=== PATIENT | female | born 1955 | race Caucasian/White ===

== ENCOUNTER → 2016-09-27 | Outpatient (CLI) | payer OTHER ==
[~2016-09-27] MED LIST: GLUCOPHAGE500 MG/TAB PO; LOTENSIN40 MG PO; MAXZIDE-25MG TA1 TAB PO; TIROSINT75 MC1 PO
== END ==
LOC: MC.RAD 06:56
DX: Z12.31 Encounter for screening mammogram for malignant neoplasm of breast (principal)

== ENCOUNTER 2017-04-18 06:24 | Day surgery (SDC) | payer OTHER ==
[~2017-04-18] VITALS: Ht 168.9 cm; Wt 127.1 kg
[2017-04-18 06:53] VITALS: BP 149/82; PULSE 78; TEMP 97.8
[2017-04-18] MEDS ORDERED: GLUCOPHAGE500 MG/TAB PO (06:57)
[2017-04-18] MEDS ORDERED: LOTENSIN40 MG PO (06:59)
[2017-04-18] MEDS ORDERED: MAXZIDE-25MG TA1 TAB PO (07:00)
[2017-04-18] MEDS ORDERED: TIROSINT75 MC1 PO (07:00)
[2017-04-18 08:05] VITALS: BP 127/71; PULSE 75; TEMP 97.8
[2017-04-18 08:20] VITALS: BP 111/66; PULSE 69
[2017-04-18 08:35] VITALS: BP 114/78; PULSE 69
== END 2017-04-18 09:29 | disposition home or self-care (01) ==
LOC: SDCO 06:24
DX: Z12.11 Encounter for screening for malignant neoplasm of colon (principal); D12.0 Benign neoplasm of cecum; D12.8 Benign neoplasm of rectum; Z86.010 Personal history of colon polyps; Z85.3 Personal history of malignant neoplasm of breast; Z90.710 Acquired absence of both cervix and uterus
CPT/HCPCS: J2250; J2405; J3010; J7030

== ENCOUNTER → 2017-11-06 | Outpatient (CLI) | payer OTHER | LOC: MC.RAD 10:57 | DX: Z12.31 Encounter for screening mammogram for malignant neoplasm of breast (principal); R92.8 Other abnormal and inconclusive findings on diagnostic imaging of breast ==

== ENCOUNTER → 2017-11-13 | Outpatient (CLI) | payer OTHER | LOC: MC.RAD 10:41 | DX: R92.0 Mammographic microcalcification found on diagnostic imaging of breast (principal) ==

== ENCOUNTER → 2017-11-26 | Outpatient (CLI) | payer OTHER | LOC: MC.RAD 09:40 | DX: R92.0 Mammographic microcalcification found on diagnostic imaging of breast (principal) ==

== ENCOUNTER 2018-01-06 06:48 | Day surgery (SDC) | payer OTHER ==
[~2018-01-06] VITALS: Ht 168.9 cm; Wt 129.3 kg
[2018-01-06] VITALS (11 sets, daily range): BP systolic 118–144; BP diastolic 71–82; PULSE 70–84; TEMP 97.2–98.5
[2018-01-06] MEDS ORDERED: GLUCOPHAGE500 MG/TAB PO (07:53)
[2018-01-06 13:52] LABS: CALCIUM 8.9 mg/dL (8.4-10.2); CREATININE, serum 0.79 mg/dL (0.52-1.25); POTASSIUM 4.4 mmol/L (3.4-5.0)
[2018-01-07 00:13] VITALS: BP 132/51; PULSE 86; TEMP 98.2
[2018-01-07 04:09] VITALS: BP 109/52; PULSE 84; TEMP 98.8
[2018-01-07 07:44] VITALS: BP 143/68; PULSE 86; TEMP 97.6
[2018-01-07] MEDS ORDERED: NORCO 325 MG-7.1 TAB PO (08:45)
== END 2018-01-07 10:00 | disposition home or self-care (01) ==
LOC: SDCO 06:48 → SURG 12:30 → SDCO 01-07 10:00
PROVIDERS: Nurse Anesthetist, Certified Registered
DX: D05.11 Intraductal carcinoma in situ of right breast (principal); N60.12 Diffuse cystic mastopathy of left breast; I10 Essential (primary) hypertension; R73.03 Prediabetes; Z90.710 Acquired absence of both cervix and uterus; Z90.12 Acquired absence of left breast and nipple
CPT/HCPCS: OP; J0690; J1100; J1170; J2405; J2704; J3010; J7030